=== PATIENT | female | born 1990 | race Caucasian/White ===

== ENCOUNTER 2020-04-11 20:31 | Inpatient (IN) ==
[2020-04-11 17:27] LABS: Creatinine,Urine 261 mg/dL; Protein/Creatinine Ratio,Urine 0.42 mg/mg (0.00-0.20)
[2020-04-11 18:32] LABS: Basophils % 0.3 %; Eosinophils # 0.1 K/mcL (0.0-0.6); Eosinophils % 0.7 %; Hematocrit 35.1 % (35.3-44.9); Hemoglobin 11.8 g/dL (11.5-15.4); Immature Granulocytes % 0.7 % (0-4); Lymphocytes # 1.6 K/mcL (0.6-4.6); Lymphocytes % 23.4 %; Mean Corpuscular HGB Conc 33.6 g/dL (31.6-35.5); Mean Corpuscular Hemoglobin 27.4 pg (28.0-33.3); Mean Corpuscular Volume 81.4 fL (83.0-100.0); Monocytes # 0.5 K/mcL (0.0-1.3); Monocytes % 6.8 %; Neutrophils # 4.6 K/mcL (1.6-8.9); Platelet Count 141 K/mcL (140-400); Red Blood Count 4.31 M/mcL (3.82-4.97); Red Cell Distribution Width 12.4 % (11.5-14.5); Segmented Neutrophils % 68.1 %; White Blood Count 6.8 K/mcL (4.3-11.1)
[2020-04-11 18:48] LABS: Alanine Aminotransferase 15 Units/L (7-52); Aspartate Amino Transferase 16 Units/L (13-39); BUN/Creatinine Ratio 15 (6-26); Blood Urea Nitrogen 9 mg/dL (6-20); Lactate Dehydrogenase 147 Units/L (140-271); Uric Acid 4.1 mg/dL (2.3-7.6); eGFR For African Americans > 60 (> 60); eGFR For Non-African Americans > 60 (> 60)
[~2020-04-11 20:31] MED LIST: *HR* FentaNYL (PF) 100 MCG/2 ML VIAL IVP PRN; Famotidine 20 MG/2 ML VIAL IVP PRN; Lidocaine 1% 20 ML MDV ID PRN; Metoclopramide 10 MG/2 ML VIAL IVP PRN; Naloxone 0.4 MG/ML INJ IVP PRN; Ondansetron 4 MG/2 ML VIAL IVP PRN; Penicillin G Potassium 5,000,000 UNIT in 0.9 % Sodium Chloride Mini Bag 100 ML IVPB ONE
[2020-04-11] MEDS ORDERED: miSOPROStoL 25 MCG TABLET PO PRN (20:34)
[2020-04-11] MEDS ORDERED: Ringers Solution, Lactated 1,000 ML ONE (20:40)
[2020-04-11] MEDS ORDERED: *HR* Buprenorphine HCl 2 MG SUBLINGUAL TABLET SL SCH (21:00)
[2020-04-11] MEDS ORDERED: Epidural Premix (fent/bupiv) 110 ML EP SCH (22:00)
[2020-04-11] MEDS ORDERED: EPHEDrine 50 MG/ML VIAL IVP PRN (22:00)
[2020-04-11] MEDS ORDERED: *HR* FentaNYL (PF) 100 MCG/2 ML VIAL EP ONE (22:00)
[2020-04-11] MEDS ORDERED: Bupivacaine-MPF 0.25% 10 ML VIAL EP ONE (22:00)
[2020-04-11] MEDS ORDERED: *HR* FentaNYL (PF) 100 MCG/2 ML VIAL ONE (22:02)
[2020-04-11] MEDS ORDERED: Bupivacaine-MPF 0.25% 10 ML VIAL ONE (22:02)
[2020-04-12] MEDS: Penicillin G Potassium 2,500,000 UNIT/105 ML UNIT IVPB SCH ×2 (01:00→04:57)
[2020-04-12] MEDS ORDERED: Oxytocin 20 units/ LR 1000 mL 20 UNIT/1,000 ML BAG IVC SCH ×2 (03:00→14:39)
[2020-04-12] MEDS ORDERED: Ropivacaine/PF 0.2% 20 ML VIAL ONE (07:57)
[2020-04-12] MEDS ORDERED: Ringers Solution, Lactated 1,000 ML ONE (09:12)
[2020-04-12 12:15] LABS: Amphetamine Screen,Urine Negative ng/mL (Cutoff=1000); Barbiturate Screen,Urine Negative ng/mL (Cutoff=200); Benzodiazepines Screen,Urine Negative ng/mL (Cutoff=200); Cannabinoid Screen,Urine Negative ng/mL (Cutoff = 50); Cocaine Screen,Urine Negative ng/mL (Cutoff= 300); Opiate Screen,Urine Negative ng/mL (Cutoff=300); Phencyclidine Screen,Urine Negative ng/mL (Cutoff=25)
[2020-04-12] MEDS ORDERED: Acetaminophen 325 MG TABLET PO PRN (14:39)
[2020-04-12] MEDS ORDERED: Measles/Mumps/Rubella Vacc 0.5 ML VIAL SQ PRN (14:39)
[2020-04-12] MEDS ORDERED: Rho Immune Globulin 1,500 UNIT SYRINGE IM PRN (14:39)
[2020-04-12] MEDS: *HR* Buprenorphine HCl 2 MG SUBLINGUAL TABLET SL SCH (20:52)
[2020-04-13 08:03] VITALS: BP 138/84
[2020-04-13] MEDS: *HR* Buprenorphine HCl 2 MG SUBLINGUAL TABLET SL SCH (08:03)
[2020-04-13 08:37] LABS: Basophils % 0.3 %; Eosinophils # 0.1 K/mcL (0.0-0.6); Eosinophils % 0.7 %; Hematocrit 31.8 % (35.3-44.9); Hemoglobin 10.5 g/dL (11.5-15.4); Immature Granulocytes % 0.7 % (0-4); Lymphocytes # 1.6 K/mcL (0.6-4.6); Lymphocytes % 21.4 %; Mean Corpuscular Hemoglobin 27.8 pg (28.0-33.3); Mean Corpuscular Volume 84.1 fL (83.0-100.0); Mean Platelet Volume 12.7 fL (9.4-12.4); Monocytes # 0.5 K/mcL (0.0-1.3); Monocytes % 5.9 %; Neutrophils # 5.5 K/mcL (1.6-8.9); Platelet Count 125 K/mcL (140-400); Red Blood Count 3.78 M/mcL (3.82-4.97); Red Cell Distribution Width 12.7 % (11.5-14.5); White Blood Count 7.7 K/mcL (4.3-11.1)
[2020-04-13 08:50] LABS: Alanine Aminotransferase 14 Units/L (7-52); Aspartate Amino Transferase 15 Units/L (13-39); BUN/Creatinine Ratio 15 (6-26); Blood Urea Nitrogen 9 mg/dL (6-20); Lactate Dehydrogenase 157 Units/L (140-271); Uric Acid 3.7 mg/dL (2.3-7.6); eGFR For African Americans > 60 (> 60); eGFR For Non-African Americans > 60 (> 60)
[2020-04-13] MEDS ORDERED: Prenatal Vit/FA 1 EACH TABLET PO SCH (09:00)
== END 2020-04-13 11:36 | disposition home or self-care (01) | DRG 560 ==
LOC: 1NENULAB → 1NENUOBS 04-12 14:09
PROVIDERS: ADMIT Obstetrics & Gynecology; ATTEND Obstetrics & Gynecology